=== PATIENT | female | born 1955 | race Caucasian/White ===

== ENCOUNTER 2024-04-15 15:18 | Emergency (ER) | payer MEDICARE, OTHER, SELFPAY ==
[2024-04-15 15:21] VITALS: BP 130/65
[2024-04-15 15:41] LABS: % Basophils 0.8 % (0-2); % Eosinophils 8.8 % (0-6); % Immature Granulocytes 0.4 % (0-0.5); % Lymphocytes 30.5 % (20.5-51.1); % Monocytes 8.5 % (1.7-9.3); Absolute Basophils 0.1 10^3/uL (0-0.2); Absolute Eosinophils 0.9 10^3/uL (0-0.7); Absolute Lymphocytes 3.2 10^3/uL (1.2-3.4); Absolute Monocytes 0.9 10^3/uL (0.1-0.6); Absolute Neutrophils 5.3 10^3/uL (1.4-6.5); Hemoglobin 13.6 g/dL (12.0-16.0); Mean Corpuscular Volume 88.3 fL (81.0-99.0); Mean Platelet Volume 9.6 fL (7.4-10.4); Nucleated Red Blood Cells % 0 %; Platelet Count 431 10^3/uL (130-400); Red Blood Cell Count 4.53 10^6/uL (4.20-5.40); White Blood Cell Count 10.4 10^3/uL (4.8-10.8)
[2024-04-15 15:50] LABS: ALT (SGPT) 19 U/L (0-35); AST (SGOT) 30 U/L (14-36); Albumin 4.3 g/dl (3.5-5.0); Alkaline Phosphatase 87 U/L (38-126); Blood Urea Nitrogen 16 mg/dl (7-17); Calcium 9.6 mg/dl (8.4-10.2); Carbon Dioxide 24 mmol/L (22-30); Chloride 104 mmol/L (98-107); Glucose 101 mg/dl (70-99); Lipase 79 U/L (23-300); Potassium 4.4 mmol/L (3.5-5.1); Sodium 140 mmol/L (135-145); Total Bilirubin 0.8 mg/dl (0.2-1.3); Total Protein 7.7 g/dl (6.3-8.2); eGFR > 60.00
--- NOTE | 2024-04-15 17:56 | ED.GENMED ---
History of Present Illness
General
Chief Complaint: Abdominal Symptoms
Time Seen by Provider: 04/15/24 17:56
Travel History
Have you had any contact with someone who has COVID-19?: No
Do you have any symptoms of coronavirus? Fever > 100 degrees, chills, cough, shortness of breath, sore throat, loss of taste or smell, muscle aches, or headache?: No
History of Present Illness
History of Present Illness:
HPI: The patient has about 6 months of intermittent episodes of diarrhea, nausea, and vomiting. She has intermittently been trying Zofran. She feels fairly well-hydrated. At times she has some associated abdominal pain primarily to the right
upper quadrant. She has had an appendectomy and has had C-sections. She currently began pain. She could not get into see Dr. Greene until this July. She has tried omeprazole 20 mg daily for the past 2-1/2 weeks with some improvement.
EXAM:
GENERAL: Well appearing in no distress
HEENT: Moist oral mucosa, appears well-hydrated
CARDIOVASCULAR: No murmurs, normal heart rate, regular rhythm, No chest wall tenderness
PULMONARY: No respiratory distress, breath sounds are clear and equal
ABDOMEN: Soft with no peritoneal signs, no significant tenderness
NEUROLOGIC: Excellent strength all extremities, no coordination deficits
PSYCHIATRIC: Appropriate mental status, normal insight and judgement
EXTREMITIES: Nontender, no edema, moves all extremities equally
SKIN: No rash, no lesions
TIME OF INITIAL ENCOUNTER: 6 PM
NUMBER AND COMPLEXITY OF PROBLEMS ADDRESSED AT THE ENCOUNTER
� Chronic conditions affecting care: GERD
� Acute Exacerbation and/or Progression of Chronic Illness: This is an acute problem
� Differential Diagnosis includes: Exacerbation of GERD, prolonged viral syndrome, biliary colic, doubt cholecystitis,
AMOUNT AND/OR COMPLEXITY OF DATA TO BE REVIEWED AND ANALYZED
� I performed an independent evaluation of and my interpretation is:
EKG:
CT:
X-rays:
Laboratory Studies: White count 10.4, hemoglobin normal, chemistries and lipase unremarkable
Other: Ultrasound imaging suggest fatty liver but no sign of gallstones, some sludge noted but no sign of cholecystitis.
� Review of other/old records: Colonoscopy from 2022 showed diverticula and polyps were removed
� Clinical information was obtained by an independent historian: I spoke to the daughter who is a nurse
� Prescriptions/Medications Considered but not given:
� Further testing considered but not performed: Considered IV fluids however the patient feels well-hydrated and will therefore hold off and she agrees with this
RISK OF COMPLICATIONS AND/OR MORBIDITY OR MORTALITY OF PATIENT MANAGEMENT
� Social determinants of health affecting care: Lives at home
� Discussion with other providers:
� Escalation of care including admission/observation vs risk of discharge considered: Patient symptoms have been intermittently occurring for the past 6 months. She is to follow-up with GI as outpatient. Discussed patient's
results with daughter at bedside at 9:10 PM. She is to follow-up with Dr. Greene as an outpatient.
Phy Exam
Physical Exam
Physical Exam:
See HPI
Course
Orders/Labs/Results
Orders:
Orders
04/15/24 15:32
Complete Blood Count/With Diff Urgent
Comprehensive Metabolic Panel Urgent
Lipase Urgent
04/15/24 18:10
US Abdomen Complete/Upper Urgent
Comment:
Reason For Exam: intermittent RUQ 6M normal labs
Abnormal Lab Results
04/15/24
15:32
Plt Count 431 H 10^3/uL
(130-400)
Absolute Monos (auto) 0.9 H 10^3/uL
(0.1-0.6)
Absolute Eos (auto) 0.9 H 10^3/uL
(0-0.7)
Eosinophils % 8.8 H %
(0-6)
Glucose 101 H mg/dl
(70-99)
06/16/24 15:32
04/15/24 15:32
Vital Signs
Initial and Last Documented VS:
Initial Vital Signs
Temp Pulse Resp BP Pulse Ox
98.1 F 76 20 130/65 98
04/15/24 15:21 04/15/24 15:21 04/15/24 15:21 04/15/24 15:21 04/15/24 15:21
Last Documented Vital Signs
Temp Pulse Resp BP Pulse Ox
98.1 F 73 18 126/72 99
04/15/24 15:21 04/15/24 20:05 04/15/24 20:05 04/15/24 20:05 04/15/24 20:05
*Critical Care Note
Total Time (30-74mins, 75-104mins- exclusive of procedures): Not Applicable
ED Attending Note
-
Portions of this chart may have been created with voice recognition software.� Occasional wrong word or��sound alike� substitutions may have occurred due to the inherent limitations of voice recognition software.
Discharge Plan
Departure
Referrals:
Ondina Xie CRNP [Family Provider] -
Interventions
Interventions:
*Risk Screen - Suicide Last Done: 04/15/24 17:59
*General Assessment Last Done: 04/15/24 17:59
*Neglect/Abuse Screening Last Done: 04/15/24 17:59
ED- Fall Risk Assessment Last Done: 04/15/24 17:59
*ED COVID-19 Vaccine History Last Done: 04/15/24 17:59
YP-Heljrh-Rgpqdbotty Assessment Last Done: 04/15/24 17:59
Discharge Date and Time
Print Language: YAKUT
[2024-04-15 18:00] VITALS: BP 131/69
[2024-04-15 20:05] VITALS: BP 126/72
== END 2024-04-15 21:58 | disposition home or self-care (01) ==
LOC: EMR 15:18
PROVIDERS: EMERGENCY PHYSICIAN Emergency Medicine; FAMILY PHYSICIAN Nurse Practitioner Family
DX: R10.11 Right upper quadrant pain (principal); R19.7 Diarrhea, unspecified; R11.2 Nausea with vomiting, unspecified
CPT/HCPCS: 99284; 76700; 80053; 83690; 85025

== ENCOUNTER → 2024-07-12 06:39 | Day surgery (SDC) | payer MEDICARE, BC, SELFPAY | LOC: GI 06:39 | PROVIDERS: ATTENDING PHYSICIAN Internal Medicine | DX: K22.70 Barrett's esophagus without dysplasia (principal); K22.2 Esophageal obstruction; K44.9 Diaphragmatic hernia without obstruction or gangrene; R12 Heartburn; R19.7 Diarrhea, unspecified; R11.2 Nausea with vomiting, unspecified; R05.3 Chronic cough; K29.50 Unspecified chronic gastritis without bleeding | CPT/HCPCS: 43239; 88305; 88342 ==